=== PATIENT | male | born 1985 | race Hispanic/Latino ===

== ENCOUNTER 2018-08-26 14:13 | Emergency (ER) | payer OTHER ==
[2018-08-26 14:33] VITALS: BP 135/85; PULSE 87; RESP 18; TEMP 98.3; O2SAT 97
[2018-08-26] MEDS ORDERED: Lidocaine 2% Inj (20ml) INFIL ONE (14:59)
[2018-08-26] MEDS ORDERED: Lidocaine 2% MPF (5 ml) Inj ONE (15:04)
[2018-08-26] MEDS ORDERED: Tdap Vaccine 0.5 ml Vial (10-64 yrs) IM ONE ×2 (15:04→15:51)
[2018-08-26] MEDS ORDERED: Bacitracin 500 Units/gm Oint Foilpak UD TOP ONE (15:04)
--- NOTE | 2018-08-26 15:22 | C.PDOC ---
History Of Present Illness 32 y/o male presents to the ED for evaluation of a laceration to his left hand, sustained 30 minutes prior to arrival. Patient states he was cleaning the food tester at home, and accidentally cut the base of his left thumb. He denies any numbness, weakness, tingling, or other complaints. Patient is left hand dominant. Last Tetanus booster was 7 years ago. Time Seen by Provider: 08/26/18 14:31 Chief Complaint (Nursing): Finger,Hand,&Wrist History Per: Patient History/Exam Limitations: no limitations Onset/Duration Of Symptoms: Mins (x30) Current Symptoms Are (Timing): Still Present Past Medical History Reviewed: Historical Data, Nursing Documentation, Vital Signs Vital Signs: Last Vital Signs Temp 98.3 F 08/26/18 14:30 Pulse 87 08/26/18 14:30 Resp 18 08/26/18 14:30 BP 135/85 08/26/18 14:30 Pulse Ox 97 08/26/18 14:30 - Medical History PMH: Anxiety, Depression Surgical History: Appendectomy Family History: States: No Known Family Hx - Social History Hx Alcohol Use: Yes Hx Substance Use: No - Immunization History Hx Tetanus Toxoid Vaccination: No Hx Influenza Vaccination: No Hx Pneumococcal Vaccination: No Review Of Systems Except As Marked, All Systems Reviewed And Found Negative. Constitutional: Negative for: Fever, Chills Musculoskeletal: Positive for: Hand Pain Skin: Positive for: Lesions (to left thumb) Neurological: Negative for: Weakness, Numbness, Incoordination Physical Exam - Physical Exam Appears: Non-toxic, No Acute Distress Skin: Warm, Dry, Other (3 cm laceration at the dorsal base of left 1st digit, minimal active bleeding) Head: Atraumatic, Normacephalic Eye(s): bilateral: Normal Inspection Oral Mucosa: Moist Extremity: Normal ROM, No Tenderness, Capillary Refill (less than 2 sec), No Swelling, Other (No evidence of tendon involvement) Pulses: Left Radial: Normal, Right Radial: Normal Neurological/Psych: Oriented x3, Normal Speech, Normal Motor, Normal Sensation Gait: Steady ED Course And Treatment O2 Sat by Pulse Oximetry: 97 (RA) Pulse Ox Interpretation: Normal Laceration - Laceration Repair left thumb Wound Length (In cm): 3 Description Of Wound: Linear Wound Cleansed With: Betadine, Sterile Saline Anesthesia: Lidocaine 2% Wound Examination: Irrigated With Saline, No FB With Wound Exploration, No Tendon Injury With Wound Exploration Wound Closure: Suture (x5) Suture Technique And Material Used: Nylon (3:0) Wound Complexity: Simple Medical Decision Making Medical Decision Making: Plan: Wound was cleansed with pressurized saline and betadine use 18 guage angiocath and syringe --Lido 2% ordered for laceration repair --Tetanus booster administered Patient tolerated procedure well. Bacitracin and sterile wound dressing applied. Educated patient on wound care and the importance of follow up for suture removal. Patient is stable for discharge home. Disposition - Disposition Referrals: Ron Ray MD [Staff Provider] - Disposition: HOME/ ROUTINE Disposition Time: 15:51 Condition: STABLE Additional Instructions: KEEP THE WOUND CLEAN AND DRY FOR 2 DAYS. OPEN CUT ON MONDAY AND THEN CLEAN IT TWICE A DAY WITH SOAP AND WATER, THEN APPLY BACITRACIN. SUTURES TO BE REMOVED WITHIN 7-10 DAYS. RETURN IF WORSENED. Prescriptions: Bacitracin Ointment [Bacitracin] 30 gm TOP BID #1 tube Cephalexin [Keflex] 500 mg PO BID #10 capsule Instructions: Laceration Repair Forms: [facility] (Danish), Work Excuse - Clinical Impression Clinical Impression: Hand laceration - PA / [employer] / Resident Statement MD/DO has reviewed & agrees with the documentation as recorded. - Scribe Statement The provider has reviewed the documentation as recorded by the Scribe (Darling Mccoy) All medical record entries made by the Scribe were at my direction and personally dictated by me. I have reviewed the chart and agree that the record accurately reflects my personal performance of the history, physical exam, medical decision making, and the department course for this patient. I have also personally directed, reviewed, and agree with the discharge instructions and disposition.
[2018-08-26] MEDS ORDERED: Bacitracin 500 Units/gm Oint Foilpak UD ONE (15:46)
== END 2018-08-26 16:07 | disposition home or self-care (01) ==
LOC: C.ER 14:13
DX: S61.012A Laceration without foreign body of left thumb without damage to nail, initial encounter (principal); W45.8XXA Other foreign body or object entering through skin, initial encounter; Y93.G1 Activity, food preparation and clean up; Y92.009 Unspecified place in unspecified non-institutional (private) residence as the place of occurrence of the external cause